=== PATIENT | male | born 1975 | race Caucasian/White ===

== ENCOUNTER 2017-11-12 17:46 | Emergency (ER) | payer OTHER ==
[2017-11-12] MEDS: LIDOCAINE 1% (MDV) 20 ML INJ SC (22:24)
[2017-11-12] MEDS: HYDROCODONE/APAP (5/325) TAB PO (23:08)
== END 2017-11-12 23:53 | disposition left against medical advice (07) ==
LOC: FTE 23:53
DX: S61.412A Laceration without foreign body of left hand, initial encounter (principal); Y04.0XXA Assault by unarmed brawl or fight, initial encounter; Z87.891 Personal history of nicotine dependence
CPT/HCPCS: 73130; 73130-LT; 73130-RT; 99284-25